=== PATIENT | female | born 1990 | race Caucasian/White ===

== ENCOUNTER → 2016-11-13 | Outpatient (CLI) | payer OTHER ==
[~2016-11-13] MED LIST: ATOR10TA9 PO; BUTA1CAP59 PO; FEXO180T5 PO; LISI5TAB7 PO; norethindrone PO
== END | disposition home or self-care (01) ==
LOC: CFH 12:05
PROVIDERS: ATTEND Family Medicine
DX: R59.1 Generalized enlarged lymph nodes (principal)
CPT/HCPCS: 76536

== ENCOUNTER 2018-08-20 06:06 | Inpatient (IN) | payer OTHER ==
[~2018-08-20] VITALS: Ht 170.2 cm; Wt 119.0 kg
[2018-08-20] MEDS: LACTATED RINGERS 1,000 ML IV SCH ×5 (00:10→19:57)
[2018-08-20] MEDS: OXYTOCIN 30U/ 0.9% NaCL 500ML 500 ML IV SCH (00:10)
[~2018-08-20 06:06] MED LIST changes: +FEXO180T15 PO; -FEXO180T5 PO
[2018-08-20] MEDS ORDERED: OXYTOCIN 30U/ 0.9% NaCL 500ML 500 ML IV ONE (06:10)
[2018-08-20] MEDS ORDERED: D5%-LACTATED RINGERS 1,000 ML IV SCH (06:10)
[2018-08-20 06:26] VITALS: BP 142/85
[2018-08-20] MEDS ORDERED: ONDANSETRON 2MG/ML, 2ML IVPush PRN (06:30)
[2018-08-20] MEDS ORDERED: FENTANYL PF 100 MCG/2ML IVPush PRN (06:30)
[2018-08-20] MEDS ORDERED: CALCIUM CARBONATE 500 MG TAB.CHEW PO PRN ×2 (06:30→22:30)
[2018-08-20] MEDS ORDERED: FENTANYL PF 100 MCG/2ML IV PRN (06:30)
[2018-08-20] MEDS ORDERED: PREN-3 PO (06:34)
[2018-08-20 06:55] LABS: BASOPHILS # (AUTO) 0.04 x10^3/uL (0-0.1); BASOPHILS % (AUTO) 0 % (0-1); EOSINOPHILS % (AUTO) 1 % (1-7); LYMPHOCYTES # (AUTO) 1.39 x10^3/uL (1-3.4); LYMPHOCYTES % (AUTO) 15 % (22-44); MD NO; MEAN CORPUSCULAR HEMOGLOBIN 30.2 pg (27.0-34.8); MEAN CORPUSCULAR HGB CONC 33.9 g/dL (32.4-35.8); MEAN CORPUSCULAR VOLUME 88.9 fL (80-100); MONOCYTES # (AUTO) 0.49 x10^3/uL (0.2-0.8); MONOCYTES % (AUTO) 6 % (2-9); NEUTROPHILS # (AUTO) 6.99 x10^3/uL (1.8-6.8); NEUTROPHILS % (AUTO) 78 % (42-75); PLATELET COUNT 299 x10^3/uL (130-400); RED BLOOD COUNT 4.58 x10^6/uL (3.82-5.3); RED CELL DISTRIBUTION WIDTH 13.2 % (9.6-15.2)
[2018-08-20] MEDS ORDERED: OXYTOCIN 30U/ 0.9% NaCL 500ML 500 ML ONE (07:20)
[2018-08-20] MEDS ORDERED: NEWBORN KIT ONE (07:20)
[2018-08-20] MEDS ORDERED: OXYTOCIN 30U/ 0.9% NaCL 500ML 500 ML IV PRN (07:48)
[2018-08-20] MEDS ORDERED: FENTANYL/BUPIV./NS/PF 250 ML EPIDCONT SCH ×2 (08:57→09:09)
[2018-08-20] MEDS ORDERED: FENTANYL PF 500 MCG, BUPIVACAINE/PF 0.5%, 30ML 62.5 ML in SODIUM CHLORIDE 0.9% 177.5 ML EPIDCONT SCH (09:30)
[2018-08-20] MEDS ORDERED: EPHEDRINE 50 MG/ML, 1ML IVPush PRN (09:30)
[2018-08-20] MEDS ORDERED: LACTATED RINGERS 1,000 ML IVBOLUS PRN (09:30)
[2018-08-20] MEDS ORDERED: NALOXONE 0.4 MG/ML, 1ML IVPush PRN (09:30)
[2018-08-20] MEDS ORDERED: ONDANSETRON 2MG/ML, 2ML ONE ×2 (10:12→20:32)
[2018-08-20] MEDS ORDERED: BUPIVACAINE 0.25% ONE (12:50)
[2018-08-20] MEDS ORDERED: TERBUTALINE 1 MG/ML, 1ML ONE ×2 (17:03→20:31)
[2018-08-20] MEDS ORDERED: TERBUTALINE 1 MG/ML, 1ML IVPush PRN (17:30)
[2018-08-20] MEDS ORDERED: METOCLOPRAMIDE 5 MG/ML, 2ML ONE (20:00)
[2018-08-20] MEDS ORDERED: SODIUM CITRATE/CITRIC ACID 30 ML UDC ONE (20:00)
[2018-08-20] MEDS ORDERED: CLINDAMYCIN PMX 900MG/50ML 50 ML ONE (20:06)
[2018-08-20] MEDS ORDERED: CLINDAMYCIN PMX 900MG/50ML 50 ML IV ONE (20:30)
[2018-08-20] MEDS ORDERED: OXYTOCIN 10 UNITS/ML, 1ML ONE (20:32)
[2018-08-20] MEDS ORDERED: SUCCINYLCHOLINE 20 MG/ML, 10ML ONE (20:32)
[2018-08-20] MEDS ORDERED: PROPOFOL 10 MG/ML, 20ML ONE (20:32)
[2018-08-20] MEDS ORDERED: EPHEDRINE 50 MG/ML, 1ML ONE (20:32)
[2018-08-20] MEDS ORDERED: KETOROLAC 30 MG/1 ML ONE (20:32)
[2018-08-20] MEDS ORDERED: DEXAMETHASONE 4 MG/ML, 1ML ONE (20:32)
[2018-08-20] MEDS ORDERED: CEFAZOLIN 1,000 MG ONE (20:32)
[2018-08-20] MEDS ORDERED: PHENYLEPHRINE 10 MG/ML ONE (20:32)
[2018-08-20] MEDS ORDERED: FENTANYL PF 100 MCG/2ML ONE ×2 (20:33→20:44)
[2018-08-20] MEDS ORDERED: SODIUM CITRATE/CITRIC ACID 30 ML UDC PO ONE (21:00)
[2018-08-20] MEDS ORDERED: METOCLOPRAMIDE 5 MG/ML, 2ML IV ONE (21:00)
[2018-08-20] MEDS ORDERED: LACTATED RINGERS 1,000 ML IV SCH (21:00)
[2018-08-20] MEDS ORDERED: morphine SULFATE/PF 1 MG/ML, 10ML ONE (21:10)
[2018-08-20] MEDS ORDERED: HYDROmorphone 2 MG/ML, 1ML ONE (21:35)
[2018-08-20] MEDS ORDERED: MISOPROSTOL 200 MCG TABLET PO PRN (22:30)
[2018-08-20] MEDS: KETOROLAC 30 MG/1 ML IV SCH (22:30)
[2018-08-20] MEDS ORDERED: ONDANSETRON 2MG/ML, 2ML IV PRN (22:30)
[2018-08-20] MEDS ORDERED: morphine SULFATE 10 MG/ML, 1ML IVPush PRN ×2 (22:30)
[2018-08-20] MEDS ORDERED: IBUPROFEN 600 MG TABLET PO PRN (22:30)
[2018-08-20] MEDS ORDERED: OXYcodone IR 5MG TABLET PO PRN (22:30)
[2018-08-21 00:10] VITALS: BP 137/84
[2018-08-21] MEDS: OXYTOCIN 30U/ 0.9% NaCL 500ML 500 ML IV SCH ×5 (00:10→18:05)
[2018-08-21] MEDS: LACTATED RINGERS 1,000 ML IV SCH ×11 (00:10→22:05)
[2018-08-21] MEDS: KETOROLAC 30 MG/1 ML IV SCH ×3 (03:37→15:55)
[2018-08-21 03:40] VITALS: BP 136/79
[2018-08-21] MEDS ORDERED: HYDROmorphone 1 MG/ML, 1ML IVPush PRN (05:00)
[2018-08-21] MEDS ORDERED: FENTANYL PF 100 MCG/2ML IVPush PRN (05:00)
[2018-08-21] MEDS ORDERED: ONDANSETRON 2MG/ML, 2ML IVPush PRN (05:00)
[2018-08-21] MEDS ORDERED: NO SEDATIVES, TRANQUILIZERS OR ANTIEMETICS XX SCH (05:00)
[2018-08-21] MEDS ORDERED: KETOROLAC 30 MG/1 ML IVPush SCH (05:00)
[2018-08-21] MEDS ORDERED: DIPHENHYDRAMINE 50 MG/ML, 1ML IV PRN (05:00)
[2018-08-21] MEDS ORDERED: NALOXONE 0.4 MG/ML, 1ML IV PRN ×3 (05:00)
[2018-08-21] MEDS ORDERED: EPHEDRINE 50 MG/ML, 1ML IVPush PRN (05:00)
[2018-08-21 06:00] LABS: BASOPHILS # (AUTO) 0.01 x10^3/uL (0-0.1); BASOPHILS % (AUTO) 0 % (0-1); EOSINOPHILS % (AUTO) 0 % (1-7); LYMPHOCYTES # (AUTO) 0.72 x10^3/uL (1-3.4); LYMPHOCYTES % (AUTO) 5 % (22-44); MD NO; MEAN CORPUSCULAR HEMOGLOBIN 30.6 pg (27.0-34.8); MEAN CORPUSCULAR HGB CONC 34.8 g/dL (32.4-35.8); MEAN PLATELET VOLUME 8.4 fL (7.4-10.4); MONOCYTES % (AUTO) 5 % (2-9); NEUTROPHILS # (AUTO) 11.76 x10^3/uL (1.8-6.8); NEUTROPHILS % (AUTO) 89 % (42-75); PLATELET COUNT 263 x10^3/uL (130-400); RED BLOOD COUNT 3.69 x10^6/uL (3.82-5.3); RED CELL DISTRIBUTION WIDTH 13.8 % (9.6-15.2)
[2018-08-21 06:30] VITALS: BP 125/78
[2018-08-21] MEDS: PRENATAL VIT/IRON/FA 1 EACH TABLET PO SCH (09:35)
[2018-08-21] MEDS: DOCUSATE 100 MG CAPSULE PO PRN ×2 (09:35→21:05)
[2018-08-21] MEDS: OXYcodone/APAP 5/325MG TABLET PO PRN ×5 (10:08→22:22)
[2018-08-21 11:50] VITALS: BP 129/81
[2018-08-21 16:00] VITALS: BP 133/88
[2018-08-21 20:00] VITALS: BP 130/84
[2018-08-21] MEDS: SIMETHICONE 80 MG CHEW TAB PO PRN (21:05)
[2018-08-22 01:00] VITALS: BP 128/81
[2018-08-22] MEDS: OXYcodone/APAP 5/325MG TABLET PO PRN ×4 (02:59→19:47)
[2018-08-22 04:30] VITALS: BP 133/81
[2018-08-22] MEDS: DOCUSATE 100 MG CAPSULE PO PRN ×2 (07:27→19:47)
[2018-08-22] MEDS: PRENATAL VIT/IRON/FA 1 EACH TABLET PO SCH (07:27)
[2018-08-22 07:30] VITALS: BP 119/74
[2018-08-22] MEDS: SIMETHICONE 80 MG CHEW TAB PO PRN (19:46)
[2018-08-22 20:00] VITALS: BP 154/90
[2018-08-23] MEDS: OXYcodone/APAP 5/325MG TABLET PO PRN ×4 (00:36→20:55)
[2018-08-23] MEDS: DOCUSATE 100 MG CAPSULE PO PRN ×2 (07:53→20:55)
[2018-08-23] MEDS: PRENATAL VIT/IRON/FA 1 EACH TABLET PO SCH (07:53)
[2018-08-23 09:07] VITALS: BP 152/114
[2018-08-23 20:09] VITALS: BP 137/82
[2018-08-24] MEDS: OXYcodone/APAP 5/325MG TABLET PO PRN ×2 (02:16→08:12)
[2018-08-24 07:30] VITALS: BP 139/83
[2018-08-24] MEDS: DOCUSATE 100 MG CAPSULE PO PRN (08:12)
[2018-08-24] MEDS: PRENATAL VIT/IRON/FA 1 EACH TABLET PO SCH (08:12)
[2018-08-24] MEDS ORDERED: OXYC-302 PO (09:23)
[2018-08-24] MEDS ORDERED: DOCU-131 PO (09:24)
== END 2018-08-24 10:00 | disposition home or self-care (01) | DRG 788 ==
LOC: LDIP 06:06 → 2NW 23:48
PROVIDERS: ADMIT Obstetrics & Gynecology; ATTEND Obstetrics & Gynecology
PROC: 10D00Z1 Extraction of Products of Conception, Low, Open Approach (ICD-10-PCS; principal; 2018-08-20)
DX: O76 Abnormality in fetal heart rate and rhythm complicating labor and delivery (principal); O69.2XX0 Labor and delivery complicated by other cord entanglement, with compression, not applicable or unspecified; E78.00 Pure hypercholesterolemia, unspecified; O16.4 Unspecified maternal hypertension, complicating childbirth; O99.844 Bariatric surgery status complicating childbirth; O99.284 Endocrine, nutritional and metabolic diseases complicating childbirth; O64.0XX0 Obstructed labor due to incomplete rotation of fetal head, not applicable or unspecified; Z3A.39 39 weeks gestation of pregnancy; Z37.0 Single live birth; Z82.49 Family history of ischemic heart disease and other diseases of the circulatory system; Z83.3 Family history of diabetes mellitus; Z87.891 Personal history of nicotine dependence; Z88.0 Allergy status to penicillin
CPT/HCPCS: 36415; J7121; 82803; 85025; 86850; 86900; G0378; J0690; J1100; J1170; J1885; J2274; J2405; J2704; J3010; J0330; J2370; J2590; J3105; J7120

== ENCOUNTER → 2018-10-11 | Outpatient (CLI) | payer OTHER ==
[~2018-10-11] MED LIST changes: +DOCU-131 PO; +OXYC-302 PO; +PREN-3 PO
== END | disposition home or self-care (01) ==
LOC: WOUND 10:30
PROVIDERS: ATTEND Family Medicine
DX: T81.31XA Disruption of external operation (surgical) wound, not elsewhere classified, initial encounter (principal); E78.5 Hyperlipidemia, unspecified; I10 Essential (primary) hypertension; E78.00 Pure hypercholesterolemia, unspecified; Z88.0 Allergy status to penicillin; Z87.891 Personal history of nicotine dependence; Y92.89 Other specified places as the place of occurrence of the external cause; Y83.8 Other surgical procedures as the cause of abnormal reaction of the patient, or of later complication, without mention of misadventure at the time of the procedure
CPT/HCPCS: 99214

== ENCOUNTER → 2018-10-18 | Outpatient (CLI) | payer OTHER | END | disposition home or self-care (01) | LOC: WOUND 12:53 | PROVIDERS: ATTEND Family Medicine | DX: T81.31XD Disruption of external operation (surgical) wound, not elsewhere classified, subsequent encounter (principal); E78.5 Hyperlipidemia, unspecified; I10 Essential (primary) hypertension; E78.00 Pure hypercholesterolemia, unspecified; Z88.0 Allergy status to penicillin; Z87.891 Personal history of nicotine dependence; Y83.8 Other surgical procedures as the cause of abnormal reaction of the patient, or of later complication, without mention of misadventure at the time of the procedure | CPT/HCPCS: 99214 ==

== ENCOUNTER → 2018-11-04 | Outpatient (CLI) | payer OTHER | END | disposition home or self-care (01) | LOC: WOUND 09:00 | PROVIDERS: ATTEND Internal Medicine | DX: T81.31XD Disruption of external operation (surgical) wound, not elsewhere classified, subsequent encounter (principal); E78.5 Hyperlipidemia, unspecified; I10 Essential (primary) hypertension; E78.00 Pure hypercholesterolemia, unspecified; Z88.0 Allergy status to penicillin; Z87.891 Personal history of nicotine dependence; Y83.8 Other surgical procedures as the cause of abnormal reaction of the patient, or of later complication, without mention of misadventure at the time of the procedure | CPT/HCPCS: 99213 ==

== ENCOUNTER → 2020-10-15 | Outpatient (CLI) | payer OTHER ==
[~2020-10-15] MED LIST changes: -OXYC-302 PO; +OXYC1TAB14 PO
== END | disposition home or self-care (01) ==
LOC: STAR 12:58
PROVIDERS: ATTEND Obstetrics & Gynecology
DX: Z20.822 Contact with and (suspected) exposure to COVID-19 (principal)
CPT/HCPCS: U0003

== ENCOUNTER 2020-10-20 05:40 | Inpatient (IN) | payer OTHER ==
[~2020-10-20] VITALS: Ht 172.7 cm; Wt 113.6 kg
[2020-10-20 05:52] VITALS: BP 121/75
[2020-10-20] MEDS ORDERED: LACTATED RINGERS 1,000 ML IVBOLUS ONE (06:00)
[2020-10-20] MEDS ORDERED: SODIUM CITRATE/CITRIC ACID 30 ML UDC PO ONE (06:00)
[2020-10-20] MEDS ORDERED: METOCLOPRAMIDE 5 MG/ML, 2ML IV ONE (06:00)
[2020-10-20] MEDS ORDERED: LACTATED RINGERS 1,000 ML IV SCH (06:00)
[2020-10-20 06:16] LABS: BASOPHILS % (AUTO) 1 % (0-1); EOSINOPHILS % (AUTO) 2 % (1-7); LYMPHOCYTES % (AUTO) 25 % (22-44); MEAN CORPUSCULAR HEMOGLOBIN 29.5 pg (27.0-34.8); MEAN CORPUSCULAR HGB CONC 34.4 g/dL (32.4-35.8); MEAN PLATELET VOLUME 8.6 fL (7.4-10.4); MONOCYTES % (AUTO) 9 % (2-9); NEUTROPHILS % (AUTO) 63 % (42-75); PLATELET COUNT 300 x10^3/uL (130-400); RED BLOOD COUNT 4.33 x10^6/uL (3.82-5.3); RED CELL DISTRIBUTION WIDTH 13.9 % (9.6-15.2)
[2020-10-20 06:25] LABS: MD NO
[2020-10-20] MEDS ORDERED: SODIUM CITRATE/CITRIC ACID 15 ML UDC ONE (06:39)
[2020-10-20] MEDS ORDERED: OXYTOCIN 30U/ 0.9% NaCL 500ML 500 ML ONE (06:39)
[2020-10-20] MEDS ORDERED: ONDANSETRON 2MG/ML, 2ML ONE (07:14)
[2020-10-20] MEDS ORDERED: EPHEDRINE 50 MG/ML, 1ML ONE (07:14)
[2020-10-20] MEDS ORDERED: KETOROLAC 30 MG/1 ML ONE (07:14)
[2020-10-20] MEDS ORDERED: OXYTOCIN 10 UNITS/ML, 1ML ONE (07:14)
[2020-10-20] MEDS ORDERED: FENTANYL PF 100 MCG/2ML ONE (07:14)
[2020-10-20] MEDS ORDERED: PHENYLEPHRINE 10 MG/ML ONE (07:14)
[2020-10-20] MEDS ORDERED: CEFAZOLIN 1,000 MG ONE (07:14)
[2020-10-20] MEDS ORDERED: DEXAMETHASONE 4 MG/ML, 1ML ONE (07:14)
[2020-10-20] MEDS ORDERED: EPHEDRINE 50 MG/ML, 1ML IVPush PRN (07:30)
[2020-10-20] MEDS ORDERED: MEPERIDINE/PF 25MG/0.5ML IVPush PRN (07:30)
[2020-10-20] MEDS ORDERED: MIDAZOLAM 1 MG/ML, 2ML IV PRN (07:30)
[2020-10-20] MEDS ORDERED: LABETALOL 5MG/ML, 20ML IV PRN (07:30)
[2020-10-20] MEDS ORDERED: FENTANYL PF 100 MCG/2ML IV PRN (07:30)
[2020-10-20] MEDS ORDERED: HYDROcodone/APAP 7.5-325MG/15ML UDC PO PRN (07:30)
[2020-10-20] MEDS ORDERED: HYDROmorphone 2 MG/ML, 1ML IVPush PRN (07:30)
[2020-10-20] MEDS ORDERED: ONDANSETRON 2MG/ML, 2ML IVPush PRN (07:30)
[2020-10-20] MEDS ORDERED: METOPROLOL 1 MG/ML, 5ML IV PRN (07:30)
[2020-10-20] MEDS ORDERED: ALBUTEROL SULFATE 2.5 MG/3 ML NPPB PRN (07:30)
[2020-10-20] MEDS ORDERED: PROMETHAZINE 25 MG/ML, 1ML IV PRN (07:30)
[2020-10-20] MEDS ORDERED: hydrALAzine 20 MG/ML, 1ML IV PRN (07:30)
[2020-10-20] MEDS ORDERED: OXYcodone 5 MG/5 ML ORAL.SOL UDC PO PRN (07:30)
[2020-10-20] MEDS ORDERED: HYDROmorphone 2 MG/ML, 1ML ONE (08:01)
[2020-10-20] MEDS ORDERED: OXYcodone IR 5MG TABLET PO PRN (09:00)
[2020-10-20] MEDS ORDERED: MORPHINE SULFATE 4 MG/ML, 1ML IVPush PRN (09:00)
[2020-10-20] MEDS ORDERED: IBUPROFEN 800 MG TABLET PO PRN ×2 (09:00)
[2020-10-20] MEDS ORDERED: METHYLERGONOVINE 0.2 MG/ML IM PRN (09:00)
[2020-10-20] MEDS ORDERED: MISOPROSTOL 200 MCG TABLET PR PRN (09:00)
[2020-10-20] MEDS: LACTATED RINGERS 1,000 ML IV SCH ×4 (09:00→19:00)
[2020-10-20] MEDS ORDERED: morphine SULFATE 10 MG/ML, 1ML IM PRN (09:00)
[2020-10-20] MEDS ORDERED: TRANEXAMIC ACID 100 MG/ML, 10ML IV ONE (09:00)
[2020-10-20] MEDS ORDERED: ONDANSETRON 2MG/ML, 2ML IV PRN (09:00)
[2020-10-20] MEDS ORDERED: CARBOPROST TROMETHAMINE 250 MCG/ML, 1ML IM PRN (09:00)
[2020-10-20] MEDS ORDERED: ACETAMINOPHEN 325 MG TABLET PO PRN (09:00)
[2020-10-20] MEDS: OXYTOCIN 30U/ 0.9% NaCL 500ML 500 ML IV SCH ×2 (10:32→19:00)
[2020-10-20 11:15] VITALS: BP 100/66
[2020-10-20] MEDS: KETOROLAC 30 MG/1 ML IVPush PRN ×2 (13:57→19:44)
[2020-10-20] MEDS: OXYcodone IR 5MG TABLET PO PRN ×2 (15:08→19:45)
[2020-10-20 15:51] VITALS: BP 110/70
[2020-10-20 16:28] LABS: BASOPHILS % (AUTO) 0 % (0-1); EOSINOPHILS % (AUTO) 0 % (1-7); LYMPHOCYTES % (AUTO) 10 % (22-44); MEAN CORPUSCULAR HEMOGLOBIN 29.6 pg (27.0-34.8); MEAN PLATELET VOLUME 8.6 fL (7.4-10.4); MONOCYTES % (AUTO) 7 % (2-9); NEUTROPHILS % (AUTO) 82 % (42-75); PLATELET COUNT 262 x10^3/uL (130-400); RED BLOOD COUNT 3.78 x10^6/uL (3.82-5.3); RED CELL DISTRIBUTION WIDTH 13.8 % (9.6-15.2)
[2020-10-20 16:40] LABS: MD NO
[2020-10-20] MEDS: DOCUSATE 100 MG CAPSULE PO PRN (19:44)
[2020-10-20] MEDS: SIMETHICONE 80 MG CHEW TAB PO PRN (19:45)
[2020-10-20 20:45] VITALS: BP 124/83
[2020-10-20] MEDS: PRENATAL VIT/IRON/FA 1 EACH TABLET PO SCH (21:00)
[2020-10-21 00:15] VITALS: BP 111/72
[2020-10-21] MEDS: OXYcodone IR 5MG TABLET PO PRN ×6 (00:22→23:23)
[2020-10-21] MEDS: LACTATED RINGERS 1,000 ML IV SCH ×5 (01:00→17:00)
[2020-10-21] MEDS: KETOROLAC 30 MG/1 ML IVPush PRN ×3 (01:49→14:10)
[2020-10-21] MEDS: OXYTOCIN 30U/ 0.9% NaCL 500ML 500 ML IV SCH ×2 (05:00→15:00)
[2020-10-21] MEDS: PRENATAL VIT/IRON/FA 1 EACH TABLET PO SCH (07:44)
[2020-10-21] MEDS: DOCUSATE 100 MG CAPSULE PO PRN ×2 (07:44→20:40)
[2020-10-21 07:45] VITALS: BP 120/82
[2020-10-21] MEDS ORDERED: MEPERIDINE/PF 50 MG/ML IM PRN (11:00)
[2020-10-21] MEDS: ACETAMINOPHEN 325 MG TABLET PO PRN ×2 (14:10→20:40)
[2020-10-21 20:20] VITALS: BP 124/80
[2020-10-21] MEDS: SIMETHICONE 80 MG CHEW TAB PO PRN (20:40)
[2020-10-22] MEDS: ACETAMINOPHEN 325 MG TABLET PO PRN ×2 (02:14→07:22)
[2020-10-22] MEDS: OXYcodone IR 5MG TABLET PO PRN ×2 (04:17→08:41)
[2020-10-22 07:09] VITALS: BP 135/89
[2020-10-22] MEDS: DOCUSATE 100 MG CAPSULE PO PRN (07:22)
[2020-10-22] MEDS: PRENATAL VIT/IRON/FA 1 EACH TABLET PO SCH (07:22)
[2020-10-22] MEDS ORDERED: DOCU-131 PO (09:57)
[2020-10-22] MEDS ORDERED: OXYC1TAB14 PO (09:57)
== END 2020-10-22 10:40 | disposition home or self-care (01) | DRG 785 ==
LOC: LDIP 05:40 → 2NW 10:39
PROVIDERS: ADMIT Obstetrics & Gynecology; ATTEND Obstetrics & Gynecology
PROC: 10D00Z1 Extraction of Products of Conception, Low, Open Approach (ICD-10-PCS; principal; 2020-10-20)
PROC: 0UB70ZZ Excision of Bilateral Fallopian Tubes, Open Approach (ICD-10-PCS; 2020-10-20)
DX: O34.211 Maternal care for low transverse scar from previous cesarean delivery (principal); Z30.2 Encounter for sterilization; Z37.0 Single live birth; Z3A.39 39 weeks gestation of pregnancy; Z88.0 Allergy status to penicillin; Z88.1 Allergy status to other antibiotic agents
CPT/HCPCS: 36415; 85025; 86592; 86850; 86900; 88302; G0378; J0690; J1100; J1170; J1885; J2405; J3010; J2370; J2590; J2765; J7120